=== PATIENT | female | born 1985 | race African-American/Black ===

== ENCOUNTER 2020-05-11 22:44 | Emergency (ER) | payer OTHER ==
[~2020-05-11] VITALS: Ht 167.6 cm; Wt 68.2 kg
[2020-05-11 22:51] VITALS: BP 138/85
== END 2020-05-11 23:15 | disposition home or self-care (01) ==
LOC: ER 22:44
DX: S61.032A Puncture wound without foreign body of left thumb without damage to nail, initial encounter (principal); W01.0XXA Fall on same level from slipping, tripping and stumbling without subsequent striking against object, initial encounter; Y93.89 Activity, other specified; Y92.89 Other specified places as the place of occurrence of the external cause; Y99.8 Other external cause status
CPT/HCPCS: 99281